=== PATIENT | male | born 1960 | race Caucasian/White ===

== ENCOUNTER 2018-12-22 11:52 | Emergency (ER) | payer BC ==
[2018-12-22] MEDS ORDERED: Ketorolac 60 MG/2 ML SDV IM ONE (12:16)
--- NOTE | 2018-12-22 12:28 | EDM.PDOC ---
ED HPI GENERAL MEDICAL PROBLEM - General Chief Complaint: Genitourinary Problem Stated Complaint: RT SIDE KIDNEY PAIN Time Seen by Provider: 12/22/18 12:10 Source of Information: Reports: Patient, Old Records, RN History Limitations: Reports: No Limitations - History of Present Illness INITIAL COMMENTS - FREE TEXT/NARRATIVE: 58 yo male here with R low flank area pain. This is chronic, but worse since last night. No fever, hematuria, nausea, or dysuria. He has a pHx of both a R renal cyst and kidney stones. Has a referral to urology that he has been putting off. Says he gets relief of this recurring pain just by hydrating himself fully. Denies injury to this area. Movement does not change the pain. Has not taken anything for the pain. Onset: Gradual Onset Date: 12/21/18 Onset Time: 20:15 (Pain worse since last night.) Duration: Hour(s):, Constant Location: Reports: Back (R low, lateral ) Quality: Reports: Ache Severity: Moderate Improves with: Reports: Other (hydration) Worsens with: Reports: Other (touching area, not drinking water ) Context: Reports: Other (see HPI) Associated Symptoms: Reports: No Other Symptoms. 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) - Related Data Allergies Allergy/AdvReac Type Severity Reaction Status Date / Time No Known Allergies Allergy Verified 06/01/18 21:47 Home Meds: Home Meds Diazepam [Valium] 5 mg PO BID 06/01/18 [History] Omeprazole 20 mg PO DAILY 06/01/18 [History] Aspirin 81 mg PO DAILY 12/22/18 [History] Lisinopril 10 mg PO BID 12/22/18 [History] Metoprolol Succinate [Toprol XL] 75 mg PO DAILY 12/22/18 [History] Past Medical History Cardiovascular History: Reports: Afib, Hypertension, Syncope Gastrointestinal History: Reports: GERD Genitourinary History: Reports: Renal Calculus Neurological History: Reports: Other (See Below) Other Neuro History: pseudoseizures since 27yo Psychiatric History: Reports: Anxiety, Depression Endocrine/Metabolic History: Reports: Obesity/BMI 30+ Oncologic (Cancer) History: Reports: Other (See Below) Other Oncologic History: skin cancer (not melanoma) - Infectious Disease History Infectious Disease History: Reports: Chicken Pox - Past Surgical History GI Surgical History: Reports: Colonoscopy Male Surgical History: Reports: Lithotripsy (ESWL), Ureteral Stent Musculoskeletal Surgical History: Reports: Arthroscopic Knee Social & Family History - Tobacco Use Smoking Status *Q: Never Smoker - Caffeine Use Caffeine Use: Reports: None - Recreational Drug Use Recreational Drug Use: No ED ROS GENERAL - Review of Systems Review Of Systems: See Below Constitutional: Reports: No Symptoms HEENT: Reports: No Symptoms Respiratory: Reports: No Symptoms Cardiovascular: Reports: No Symptoms GI/Abdominal: Reports: No Symptoms : Reports: Flank Pain (R low flank area) Musculoskeletal: Reports: Back Pain (R low back) Skin: Reports: No Symptoms Neurological: Reports: No Symptoms ED EXAM, RENAL/ - Physical Exam Exam: See Below Exam Limited By: No Limitations General Appearance: Alert, WD/WN, No Apparent Distress Eye Exam: Bilateral Eye: Normal Inspection Nose: Normal Inspection, No Blood Throat/Mouth: Normal Lips, Normal Oropharynx, Normal Voice Head: Atraumatic, Sinus Tenderness Neck: Normal Inspection Respiratory/Chest: No Respiratory Distress, Lungs Clear, Normal Breath Sounds, No Accessory Muscle Use Cardiovascular: Regular Rate, Rhythm, No Edema GI/Abdominal: Normal Bowel Sounds, Soft, Non-Tender, No Distention Back Exam: Normal Inspection, Other (Tender in a very small area with touching to the R low back area, ? rib). No: CVA Tenderness (R), CVA Tenderness (L) Extremities: Normal Inspection, Normal Range of Motion, Non-Tender, No Pedal Edema Neurological: Alert, Oriented, CN II-XII Intact, Normal Cognition, No Motor/ Sensory Deficits Psychiatric: Normal Affect, Normal Mood Skin Exam: Warm, Dry, Intact, No Rash, Ecchymosis (sacral midline, not the area he reports pain, he does not know how he got this. ) Course - Vital Signs Last Recorded V/S: Last Vital Signs Temp 36.2 C 12/22/18 12:10 Pulse 89 12/22/18 12:10 Resp 16 12/22/18 12:10 BP 140/89 12/22/18 12:10 Pulse Ox 94 L 12/22/18 12:10 - Orders/Labs/Meds Labs: Laboratory Tests 12/22/18 Range/Units 12:20 Urine Color Yellow Urine Appearance Slightly cloudy Urine pH 5.0 (4.5-8.0) Ur Specific [place] 1.010 (1.008-1.030) Urine Protein Negative (NEGATIVE) mg/dL Urine Glucose (UA) Negative (NEGATIVE) mg/dL Urine Ketones 15 H (NEGATIVE) mg/dL Urine Occult Blood Trace (NEGATIVE) Urine Nitrite Negative (NEGAITVE) Urine Bilirubin Negative (NEGATIVE) Urine Urobilinogen Normal (NORMAL) mg/dL Ur Leukocyte Esterase Negative (NEGATIVE) Urine RBC 0-5 (0-5) Urine WBC 0-5 (0-5) Ur Epithelial Cells Not seen Amorphous Sediment Not seen Urine Bacteria Rare Urine Mucus Not seen Urine Other See note Meds: Medications Discontinued Medications Generic Name Dose Route Start Last Admin Trade Name Freq PRN Reason Stop Dose Admin Ketorolac Tromethamine 60 mg 12/22/18 12:16 12/22/18 12:23 Toradol IM 12/22/18 12:17 60 mg ONETIME ONE Administration - Radiology Interpretation Free Text/Narrative:: CT abd/pelvis without contrast-12 mm L UPJ stone. 2.5 cm lesion R kidney. Stones in both kidneys. CT Results Date: 12/22/18 CT Results Time: 13:05 Departure - Departure Time of Disposition: 13:10 Disposition: Home, Self-Care 01 Condition: Fair Clinical Impression: Ureterolithiasis, Renal mass, right - Discharge Information *PRESCRIPTION DRUG MONITORING PROGRAM REVIEWED*: No *COPY OF PRESCRIPTION DRUG MONITORING REPORT IN PATIENT ENRIQUE: No Instructions: Kidney Stones, [id number] Referrals: Matthew Callejas MD [Primary Care Provider] - Forms: ED Department Discharge Additional Instructions: Drink ample fluids. Take ibuprofen as needed for pain relief starting after 6 pm today. Take acetaminophen as needed starting anytime. Follow up with urology EM. Return here as needed.
--- NOTE | 2018-12-22 13:04 | CRLCT ---
INDICATION: Right lower flank pain. History of renal cysts and stones TECHNIQUE: CT abdomen and pelvis without contrast. COMPARISON: None FINDINGS: Lower chest: 2 millimeter right lower lobe nodule. Liver: Unremarkable. Spleen: Unremarkable. Pancreas: Unremarkable. Gallbladder and bile ducts: Unremarkable. Kidneys/urinary bladder: 2.5 centimeter exophytic lesion superior pole right kidney with Hounsfield units of 25. Two 5 millimeter nonobstructing calculi involving the mid zone inferior pole right kidney. 7 millimeter nonobstructing calculi inferior pole left kidney. 12 millimeter calculus left UPJ with mild left hydronephrosis. Diffuse urinary bladder wall thickening. Adrenal glands: Unremarkable. GI tract: Unremarkable. Appendix is normal. Vascular structures: Unremarkable. Lymph nodes: Unremarkable. Miscellaneous: Unremarkable. No free air or significant free fluid. Pelvic Organs: Unremarkable. Bones: Unremarkable for age. IMPRESSION: No definitive findings to explain the patient`s right lower flank pain. Two 5 millimeter nonobstructing calculus involving the mid zone and inferior pole right kidney. 12 millimeter calculus left UPJ with mild left hydronephrosis. 7 millimeter nonobstructing calculus inferior pole left kidney. Diffuse urinary bladder wall thickening. Correlate with cystitis clinically. Normal-sized prostate gland. 2.5 centimeter mixed density exophytic lesion superior pole right kidney without the use of 25. This can be better evaluated with ultrasound on a nonemergent basis. No prior exams for comparison. 2 millimeter right lower lobe nodule. Please note that all CT scans at this facility use dose modulation, iterative reconstruction, and/or weight-based dosing when appropriate to reduce radiation dose to as low as reasonably achievable. Dictated by Jhonatan Min MD @ Dec 22 2018 1:04PM Signed by Dr. Jhonatan Min @ Dec 22 2018 1:04PM
== END 2018-12-22 13:47 | disposition home or self-care (01) ==
LOC: JP.ED 11:52
DX: N13.2 Hydronephrosis with renal and ureteral calculous obstruction (principal); I48.91 Unspecified atrial fibrillation; I10 Essential (primary) hypertension; K21.9 Gastro-esophageal reflux disease without esophagitis; F41.9 Anxiety disorder, unspecified; F32.9 Major depressive disorder, single episode, unspecified; Z79.82 Long term (current) use of aspirin; Z79.899 Other long term (current) drug therapy
CPT/HCPCS: 74176; 81001; 96372; 99284; J1885

== ENCOUNTER 2019-01-02 03:45 | Emergency (ER) | payer BC ==
[2019-01-02] MEDS ORDERED: Lactated Ringers 1,000 ML IV ONE (04:03)
[2019-01-02] MEDS ORDERED: Metoclopramide 10 MG/2 ML SDV IVPUSH ONE (04:03)
[2019-01-02] MEDS ORDERED: Ketorolac 30 MG/ML SDV IVPUSH ONE (04:04)
[2019-01-02] MEDS ORDERED: HYDROmorphone 1 MG/ML Syringe IVPUSH ONE (04:04)
--- NOTE | 2019-01-02 04:15 | EDM.PDOC ---
ED HPI GENERAL MEDICAL PROBLEM - General Chief Complaint: Flank Pain Stated Complaint: KIDNEY STONES RIGHT SIDE Time Seen by Provider: 01/02/19 03:55 Source of Information: Reports: Patient, Family, Old Records, RN History Limitations: Reports: No Limitations - History of Present Illness INITIAL COMMENTS - FREE TEXT/NARRATIVE: 59 yo male with a known 12 mm distal R ureteral stone has seen urology, but is awaiting a procedure to remove it. He was not given pain meds per urology and is not in a lot of pain and has nausea/vomiting. No hematemesis. No fever. Here with his . Onset: Unknown/Unsure Duration: Week(s): (more than a week), Waxing/Waning Location: Reports: Back (right flank) Quality: Reports: Ache Severity: Moderate Improves with: Reports: None Worsens with: Reports: None Context: Reports: Other (See HPI) Associated Symptoms: Reports: Nausea/Vomiting. 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) right flank Pain Score (Numeric/FACES): 9 - Related Data Allergies Allergy/AdvReac Type Severity Reaction Status Date / Time No Known Allergies Allergy Verified 01/02/19 03:55 Home Meds: Home Meds Diazepam [Valium] 5 mg PO BID 06/01/18 [History] Omeprazole 20 mg PO DAILY 06/01/18 [History] Aspirin 81 mg PO DAILY 12/22/18 [History] Lisinopril 10 mg PO BID 12/22/18 [History] Metoprolol Succinate [Toprol XL] 75 mg PO DAILY 12/22/18 [History] Acetaminophen/oxyCODONE [Percocet 325-5 MG] 1 - 2 tab PO Q4H PRN #14 tab [Rx] Ondansetron [Zofran ODT] 4 mg PO Q6H PRN #10 tab.dis 01/02/19 [Rx] Past Medical History Cardiovascular History: Reports: Afib, Hypertension, Syncope Gastrointestinal History: Reports: GERD Genitourinary History: Reports: Renal Calculus Neurological History: Reports: Other (See Below) Other Neuro History: pseudoseizures since 27yo Psychiatric History: Reports: Anxiety, Depression Endocrine/Metabolic History: Reports: Obesity/BMI 30+ Oncologic (Cancer) History: Reports: Other (See Below) Other Oncologic History: skin cancer (not melanoma) - Infectious Disease History Infectious Disease History: Reports: Chicken Pox - Past Surgical History GI Surgical History: Reports: Colonoscopy Male Surgical History: Reports: Lithotripsy (ESWL), Ureteral Stent Musculoskeletal Surgical History: Reports: Arthroscopic Knee Social & Family History - Tobacco Use Smoking Status *Q: Never Smoker - Caffeine Use Caffeine Use: Reports: None - Recreational Drug Use Recreational Drug Use: No ED ROS GENERAL - Review of Systems Review Of Systems: See Below Constitutional: Reports: No Symptoms HEENT: Reports: No Symptoms Respiratory: Reports: No Symptoms Cardiovascular: Reports: No Symptoms Endocrine: Reports: No Symptoms GI/Abdominal: Reports: Nausea, Vomiting : Reports: Flank Pain (right). Denies: Dysuria, Hematuria, Incontinence, Urgency, Urinary Retention Musculoskeletal: Reports: No Symptoms Skin: Reports: No Symptoms Neurological: Reports: No Symptoms ED EXAM,LOWER BACK PAIN/INJURY - Physical Exam Exam: See Below Exam Limited By: No Limitations General Appearance: Alert, WD/WN, No Apparent Distress Eye Exam: Bilateral Eye: Normal Inspection Ears: Normal External Exam, Normal Canal, Hearing Grossly Normal, Normal TMs Nose: Normal Inspection, Normal Mucosa, No Blood Throat/Mouth: Normal Inspection, Normal Lips, Normal Voice, No Airway Compromise Head: Atraumatic, Normocephalic Neck: Normal Inspection Respiratory/Chest: No Respiratory Distress, Lungs Clear, No Accessory Muscle Use Cardiovascular: Regular Rate, Rhythm, No Edema Back Exam: Normal Inspection. No: CVA Tenderness (R), CVA Tenderness (L) Extremities: Normal Inspection, Normal Range of Motion, Non-Tender, No Pedal Edema Neurological: Alert, Normal Mood/Affect, CN II-XII Intact, No Motor/Sensory Deficits, Oriented x 3 Psychiatric: Normal Affect, Normal Mood Skin Exam: Warm, Dry, Intact, Normal Color, No Rash Course - Vital Signs Last Recorded V/S: Last Vital Signs Temp 35.6 C 01/02/19 03:58 Pulse 61 01/02/19 03:58 Resp 16 01/02/19 03:58 BP 171/93 H 01/02/19 03:58 Pulse Ox 99 01/02/19 03:58 - Orders/Labs/Meds Orders: Active Orders 24 hr Category Date Time Status UA W/MICROSCOPIC [URIN] Stat Lab 01/02/19 03:56 Ordered Meds: Medications Discontinued Medications Generic Name Dose Route Start Last Admin Trade Name Freq PRN Reason Stop Dose Admin Hydromorphone HCl 1 mg 01/02/19 04:04 01/02/19 04:20 Dilaudid IVPUSH 01/02/19 04:05 1 mg ONETIME ONE Administration Lactated Ringer's 1,000 mls @ 1,000 mls/hr 01/02/19 04:03 01/02/19 04:20 Ringers, Lactated IV 01/02/19 05:02 1,000 mls/hr BOLUS ONE Administration Ketorolac Tromethamine 30 mg 01/02/19 04:04 01/02/19 04:17 Toradol IVPUSH 01/02/19 04:05 30 mg ONETIME ONE Administration Metoclopramide HCl 10 mg 01/02/19 04:03 01/02/19 04:19 Reglan IVPUSH 01/02/19 04:04 10 mg ONETIME ONE Administration Departure - Departure Time of Disposition: 05:29 Disposition: Home, Self-Care 01 Condition: Fair Clinical Impression: Renal colic on right side - Discharge Information *PRESCRIPTION DRUG MONITORING PROGRAM REVIEWED*: No *COPY OF PRESCRIPTION DRUG MONITORING REPORT IN PATIENT ENRIQUE: No Prescriptions: Acetaminophen/oxyCODONE [Percocet 325-5 MG] 1 - 2 tab PO Q4H PRN #14 tab PRN Reason: Pain Ondansetron [Zofran ODT] 4 mg PO Q6H PRN #10 tab.dis PRN Reason: Nausea Instructions: Renal Colic Referrals: PCP,None [Primary Care Provider] - Forms: ED Department Discharge Additional Instructions: Take Zofran as needed for nausea control. Take ibuprofen 400 mg every 6 hrs for pain relief. Add acetaminophen OR Percocet as needed for added relief. Recheck for a fever. See a urologist to get your stone out EM. - My Orders Last 24 Hours: My Active Orders 01/02/19 03:56 UA W/MICROSCOPIC [URIN] Stat - Assessment/Plan Last 24 Hours: My Active Orders 01/02/19 03:56 UA W/MICROSCOPIC [URIN] Stat
== END 2019-01-02 06:06 | disposition home or self-care (01) ==
LOC: JP.ED 03:45
DX: N23 Unspecified renal colic (principal); I10 Essential (primary) hypertension; I48.91 Unspecified atrial fibrillation; K21.9 Gastro-esophageal reflux disease without esophagitis; F41.9 Anxiety disorder, unspecified; F32.9 Major depressive disorder, single episode, unspecified; Z79.82 Long term (current) use of aspirin; Z79.899 Other long term (current) drug therapy
CPT/HCPCS: 81001; 96361; 96374; 96375; 99284; J1170; J1885; J2765; J7120

== ENCOUNTER 2019-01-16 08:42 | Emergency (ER) | payer BC ==
[2019-01-16] MEDS ORDERED: Ketorolac 60 MG/2 ML SDV IM ONE (09:27)
--- NOTE | 2019-01-16 09:46 | EDM.PDOC ---
ED HPI GENERAL MEDICAL PROBLEM - General Chief Complaint: Genitourinary Problem Stated Complaint: KIDNEY STONES? Time Seen by Provider: 01/16/19 09:30 Source of Information: Reports: Patient, Family History Limitations: Reports: No Limitations - History of Present Illness INITIAL COMMENTS - FREE TEXT/NARRATIVE: 59-year-old male with ongoing right flank pain presumably from renal colic and nephrolithiasis, he has another CT scan scheduled for 2 days and a urology consult with surgery for a small tumor on the right kidney. A CT scan done 2 weeks ago showed several nonobstructing kidney stones bilaterally. Every day he has some pain, but this morning it was much worse, he feels anxious and shaky and wanted to be checked. Onset: Unknown/Unsure (Symptoms have been ongoing for weeks but have worsened over the past 12 hours) Associated Symptoms: Denies: Confusion, Chest Pain, Cough, Nausea/Vomiting, Shortness of Breath Right Flank Pain Score (Numeric/FACES): 9 - Related Data Allergies Allergy/AdvReac Type Severity Reaction Status Date / Time No Known Allergies Allergy Verified 01/02/19 03:55 Home Meds: Home Meds Diazepam [Valium] 5 mg PO BID 06/01/18 [History] Omeprazole 20 mg PO DAILY 06/01/18 [History] Aspirin 81 mg PO DAILY 12/22/18 [History] Lisinopril 10 mg PO BID 12/22/18 [History] Metoprolol Succinate [Toprol XL] 75 mg PO DAILY 12/22/18 [History] Acetaminophen/oxyCODONE [Percocet 325-5 MG] 1 - 2 tab PO Q4H PRN #14 tab [Rx] Ondansetron [Zofran ODT] 4 mg PO Q6H PRN #10 tab.dis 01/02/19 [Rx] Past Medical History Cardiovascular History: Reports: Afib, Hypertension, Syncope Gastrointestinal History: Reports: GERD Genitourinary History: Reports: Renal Calculus Neurological History: Reports: Other (See Below) Other Neuro History: pseudoseizures since 27yo Psychiatric History: Reports: Anxiety, Depression Endocrine/Metabolic History: Reports: Obesity/BMI 30+ Oncologic (Cancer) History: Reports: Other (See Below) Other Oncologic History: skin cancer (not melanoma) - Infectious Disease History Infectious Disease History: Reports: Chicken Pox - Past Surgical History GI Surgical History: Reports: Colonoscopy Male Surgical History: Reports: Lithotripsy (ESWL), Ureteral Stent Musculoskeletal Surgical History: Reports: Arthroscopic Knee Social & Family History - Tobacco Use Smoking Status *Q: Never Smoker - Caffeine Use Caffeine Use: Reports: None - Recreational Drug Use Recreational Drug Use: No ED ROS GENERAL - Review of Systems Review Of Systems: See Below Constitutional: Denies: Fever, Chills Respiratory: Denies: Shortness of Breath Cardiovascular: Denies: Chest Pain GI/Abdominal: Reports: Abdominal Pain (Right lower abdominal discomfort intermittent and sharp) : Reports: Flank Pain. Denies: Dysuria Musculoskeletal: Denies: Neck Pain Skin: Reports: No Symptoms ED EXAM, GENERAL - Physical Exam Exam: See Below Exam Limited By: No Limitations General Appearance: Alert, Anxious, Mild Distress Respiratory/Chest: No Respiratory Distress, Lungs Clear Cardiovascular: Regular Rate, Rhythm GI/Abdominal: Other (Tender to palpation along the right abdomen, even with mild palpation) Back Exam: Other (Back exam is difficult to examine because and even light palpation on the right flank or right lateral chest causes the patient to wince and discomfort) Psychiatric: Anxious (Patient is extremely anxious) Skin Exam: Warm, Dry Course - Vital Signs Last Recorded V/S: Last Vital Signs Temp 97.6 F 01/16/19 09:13 Pulse 83 01/16/19 09:13 Resp 18 01/16/19 09:13 BP 149/80 H 01/16/19 09:13 Pulse Ox 100 01/16/19 09:13 - Orders/Labs/Meds Labs: Laboratory Tests 01/16/19 Range/Units 09:21 Urine Color Yellow Urine Appearance Slightly cloudy Urine pH 5.0 (4.5-8.0) Ur Specific [place] 1.010 (1.008-1.030) Urine Protein Trace (NEGATIVE) mg/dL Urine Glucose (UA) 50 H (NEGATIVE) mg/dL Urine Ketones 15 H (NEGATIVE) mg/dL Urine Occult Blood Moderate (NEGATIVE) Urine Nitrite Negative (NEGAITVE) Urine Bilirubin Negative (NEGATIVE) Urine Urobilinogen Normal (NORMAL) mg/dL Ur Leukocyte Esterase Moderate (NEGATIVE) Urine RBC 5-10 H (0-5) Urine WBC 0-5 (0-5) Ur Epithelial Cells Few Amorphous Sediment Not seen Urine Bacteria Not seen Urine Mucus Few Meds: Medications Discontinued Medications Generic Name Dose Route Start Last Admin Trade Name Romina PRN Reason Stop Dose Admin Ketorolac Tromethamine 60 mg 01/16/19 09:27 01/16/19 09:31 Toradol IM 01/16/19 09:28 60 mg ONETIME ONE Administration - Re-Assessments/Exams Free Text/Narrative Re-Assessment/Exam: 01/16/19 12:11 UA was obtained that showed 5-10 RBCs, no other findings. CT showed a stable right renal mass, no hydronephrosis or other abnormality abdomen or pelvis. This was explained to the patient and I encouraged him to use the oxycodone that he was given last week for pain. I also given 10 doses of Ativan to use for anxiety and help him sleep until he can get this taken care of. I encouraged him to contact [facility] directly or consider going to the emergency room if he does not feel he can wait till 01 February for surgery. Departure - Departure Time of Disposition: 11:41 Disposition: Home, Self-Care 01 Clinical Impression: Right flank pain - Discharge Information Instructions: Flank Pain, Adult Referrals: Matthew Callejas MD [Primary Care Provider] - Forms: ED Department Discharge Care Plan Goals: Use oxycodone as prescribed for pain, and add Ativan for restlessness and to help you sleep. Consider calling [facility] to move up her surgery or reevaluate sooner at [facility] or emergency room.
--- NOTE | 2019-01-16 10:57 | CRLCT ---
HISTORY: Flank pain. TECHNIQUE: Noncontrast CT abdomen and pelvis. COMPARISON: 12/22/2018. FINDINGS: There is no focal liver parenchymal abnormality. Probable tiny gallstones. Gallbladder does not appear overly distended. The spleen and right adrenal gland are normal. Mild lobularity of the left adrenal gland is unchanged. There is no focal pancreatic abnormality. - Intrarenal calculi are present bilaterally. There is also an approximately 10 mm calculus at or slightly below the left ureteropelvic junction which appears unchanged from prior CT. No significant dilatation of the left renal collecting system. One of the intrarenal calculi on the left has changed position from the prior CT. There is no right-sided hydronephrosis or right ureteral calculus. Urinary bladder is contracted. Fluid density lesion exophytic off the superior pole right kidney is incompletely characterized but may represent a cyst. There is mild perinephric stranding or fluid bilaterally. - No small bowel obstruction. No appendicitis. No diverticulitis. No fluid collection or free air. No abdominal aortic aneurysm. - Degenerative changes of the spine. No change in mild anterior wedging of several lower thoracic vertebral bodies and L1. Bridging osteophytes across sacroiliac joints. Degenerative changes of the hips. - No consolidation within the lung bases nor pleural effusion. There are few micro nodules within the lung bases which are unchanged. IMPRESSION: 1. 10 mm calculus either at or just below the left ureteropelvic junction as before. No significant dilatation of the left renal collecting system. 2. Additional intrarenal calculi bilaterally. 3. Suspected tiny stones within the gallbladder. Gallbladder does not appear overly distended. 4. No bowel obstruction, appendicitis or diverticulitis. Dictated by Elliot Ramachandran MD @ 01/16/2019 10:55:08 AM Please note that all CT scans at this facility use dose modulation, iterative reconstruction, and/or weight-based dosing when appropriate to reduce radiation dose to as low as reasonably achievable. Dictated by: Elliot Ramachandran MD @ 01/16/2019 10:55:16 (Electronically Signed)
== END 2019-01-16 11:41 | disposition home or self-care (01) ==
LOC: JP.ED 08:42
DX: R10.9 Unspecified abdominal pain (principal); I48.91 Unspecified atrial fibrillation; I10 Essential (primary) hypertension; K21.9 Gastro-esophageal reflux disease without esophagitis; F41.9 Anxiety disorder, unspecified; F32.9 Major depressive disorder, single episode, unspecified; Z79.82 Long term (current) use of aspirin; Z79.899 Other long term (current) drug therapy
CPT/HCPCS: 74176; 81001; 96372; 99284; J1885

== ENCOUNTER 2019-01-24 02:29 | Emergency (ER) | payer BC ==
--- NOTE | 2019-01-24 03:11 | EDM.PDOC ---
ED HPI GENERAL MEDICAL PROBLEM - General Chief Complaint: Neuro Symptoms/Deficits Stated Complaint: MEDICAL VIA NORTH Time Seen by Provider: 01/24/19 03:05 Source of Information: Reports: Patient History Limitations: Reports: No Limitations - History of Present Illness INITIAL COMMENTS - FREE TEXT/NARRATIVE: pt has a long history of episodes of shakeing. In the past he was on Valium and he stopped taking that about 1 month ago. He has had 3 episodes of severe shaking and confusion since that time. He was sent to [place] in May with a elevated trop and was found to be dehydrated. He was also found to have a renal mass at that time. He was placed on effexor while in [place] and he did not do well on this medication. He has had these episodes of shaking since he was about 27 years old. Onset: Today, Sudden Duration: Hour(s):, Other (Pt did have shaking for about 2 hours. His found him very confused. ) Location: Reports: Head Associated Symptoms: Reports: Confusion, Other (pt is clearing at this point. ) - Related Data Allergies Allergy/AdvReac Type Severity Reaction Status Date / Time No Known Allergies Allergy Verified 01/24/19 02:34 Home Meds: Home Meds Diazepam [Valium] 5 mg PO BID 06/01/18 [History] Omeprazole 20 mg PO DAILY 06/01/18 [History] Aspirin 81 mg PO DAILY 12/22/18 [History] Lisinopril 10 mg PO BID 12/22/18 [History] Metoprolol Succinate [Toprol XL] 75 mg PO DAILY 12/22/18 [History] Acetaminophen/oxyCODONE [Percocet 325-5 MG] 1 - 2 tab PO Q4H PRN #14 tab [Rx] Past Medical History Cardiovascular History: Reports: Afib, Hypertension, Syncope Gastrointestinal History: Reports: GERD Genitourinary History: Reports: Renal Calculus Neurological History: Reports: Other (See Below) Other Neuro History: pseudoseizures since 27yo Psychiatric History: Reports: Anxiety, Depression Endocrine/Metabolic History: Reports: Obesity/BMI 30+ Oncologic (Cancer) History: Reports: Other (See Below) Other Oncologic History: skin cancer (not melanoma) - Infectious Disease History Infectious Disease History: Reports: Chicken Pox - Past Surgical History GI Surgical History: Reports: Colonoscopy Male Surgical History: Reports: Lithotripsy (ESWL), Ureteral Stent Musculoskeletal Surgical History: Reports: Arthroscopic Knee Social & Family History - Tobacco Use Smoking Status *Q: Never Smoker - Caffeine Use Caffeine Use: Reports: None ED ROS GENERAL - Review of Systems Review Of Systems: See Below Constitutional: Reports: No Symptoms HEENT: Reports: No Symptoms Respiratory: Reports: No Symptoms Cardiovascular: Reports: No Symptoms Endocrine: Reports: No Symptoms GI/Abdominal: Reports: No Symptoms : Reports: No Symptoms Neurological: Reports: Confusion, Other ( shaking episodes. ) Psychiatric: Reports: Confusion ED EXAM, NEURO - Physical Exam Exam: See Below Text/Narrative:: pt is alert and is remembering things at this time. He remembers coming in by ambulance. He knows where he is. Exam Limited By: Other (pt is clearing at this point.) General Appearance: No Apparent Distress, Anxious, Other (pupils are equal and reactive. ) Ears: Normal TMs Nose: Normal Inspection Throat/Mouth: Normal Inspection Head Exam: Atraumatic Neck: Normal Inspection Respiratory/Chest: No Respiratory Distress Cardiovascular: Regular Rate, Rhythm, Other (pt has a history of atrial fib. ) GI/Abdominal: Normal Bowel Sounds (Male) Exam: Deferred Rectal (Males) Exam: Deferred Neurological: Alert Back Exam: Normal Inspection Extremities: Normal Inspection Psychiatric: Anxious Course - Vital Signs Last Recorded V/S: Last Vital Signs Temp 36.3 C 01/24/19 02:32 Pulse 76 01/24/19 02:32 Resp 20 01/24/19 02:32 BP Pulse Ox 95 01/24/19 02:32 - Orders/Labs/Meds Orders: Active Orders 24 hr Category Date Time Status Head wo Cont [CT] Stat Exams 01/24/19 03:04 Ordered COMPREHENSIVE METABOLIC PN,CMP [CHEM] Urgent Lab 01/24/19 02:54 Received UA W/MICROSCOPIC [URIN] Urgent Lab 01/24/19 02:45 Ordered Labs: Laboratory Tests 01/24/19 Range/Units 02:54 WBC 4.8 (4.5-11.0) K/uL RBC 4.16 L (4.30-5.90) M/uL Hgb 12.5 D (12.0-15.0) g/dL Hct 36.1 L (40.0-54.0) % MCV 87 (80-98) fL MCH 30 (27-31) pg MCHC 35 (32-36) % Plt Count 165 (150-400) K/uL Neut % (Auto) 71 H (36-66) % Lymph % (Auto) 19 L (24-44) % Cameron % (Auto) 9 H (2-6) % Eos % (Auto) 1 L (2-4) % Baso % (Auto) 0 (0-1) % - Re-Assessments/Exams Free Text/Narrative Re-Assessment/Exam: 01/24/19 03:37 pt has chronically had a elevated creatnine. His gfr remains in the 40s. He has a hg of 12.5. He is clearing nicely at this point. 01/24/19 04:07 pt had a cat scan of the head was normal. He will be having kidney surgery in January for a mass and for kidney stones. 01/24/19 04:09 Departure - Departure Time of Disposition: 04:03 Disposition: Home, Self-Care 01 Condition: Fair Clinical Impression: Pseudoseizure, Renal calculi, Renal insufficiency - Discharge Information Referrals: Matthew Callejas MD [Primary Care Provider] - Forms: ED Department Discharge Care Plan Goals: push fluids, resume valium 5 mg bid, rtc if increased problems - My Orders Last 24 Hours: My Active Orders 01/24/19 02:45 UA W/MICROSCOPIC [URIN] Urgent 01/24/19 02:54 COMPREHENSIVE METABOLIC PN,CMP [CHEM] Urgent 01/24/19 03:04 Head wo Cont [CT] Stat - Assessment/Plan Last 24 Hours: My Active Orders 01/24/19 02:45 UA W/MICROSCOPIC [URIN] Urgent 01/24/19 02:54 COMPREHENSIVE METABOLIC PN,CMP [CHEM] Urgent 01/24/19 03:04 Head wo Cont [CT] Stat
--- NOTE | 2019-01-24 04:07 | CRLCT ---
INDICATION: Shaking episode and confusion. TECHNIQUE: CT head without contrast. COMPARISON: None. FINDINGS: CSF spaces: Within normal limits for age. Brain parenchyma: The huddleston-white differentiation is normal. No sign of mass, hemorrhage, or midline shift. Skull base and calvarium: The visualized paranasal sinuses and mastoid air cells demonstrate no acute or significant findings. The visualized orbits are grossly unremarkable. No skull fractures. Atherosclerosis. IMPRESSION: Unremarkable noncontrast head CT. Please note that all CT scans at this facility use dose modulation, iterative reconstruction, and/or weight-based dosing when appropriate to reduce radiation dose to as low as reasonably achievable. Dictated by Johnnie Tapia MD @ Jan 24 2019 3:59AM Signed by Dr. Johnnie Tapia @ Jan 24 2019 4:05AM
== END 2019-01-24 04:24 | disposition home or self-care (01) ==
LOC: JP.ED 02:29
DX: R56.9 Unspecified convulsions (principal); N28.9 Disorder of kidney and ureter, unspecified; N20.0 Calculus of kidney; K21.9 Gastro-esophageal reflux disease without esophagitis; I48.91 Unspecified atrial fibrillation; I10 Essential (primary) hypertension; F41.9 Anxiety disorder, unspecified; F32.9 Major depressive disorder, single episode, unspecified; Z79.82 Long term (current) use of aspirin; Z79.899 Other long term (current) drug therapy
CPT/HCPCS: 36415; 70450; 80053; 81001; 85025; 86140; 99285-25

== ENCOUNTER 2019-05-09 15:10 | Emergency (ER) | payer BC ==
[2019-05-09] MEDS ORDERED: Bacitracin Oint 1 GM U/D Packet TOP ONE (15:56)
[2019-05-09] MEDS ORDERED: Lidocaine 1% with EPINEPHrine 1:100,000 50 ML MDV SUBCUT STA (15:56)
[2019-05-09] MEDS ORDERED: Diphtheria,Pertussis(Acell),Tetanus Vaccine 0.5 ML SDV IM ONE (15:56)
--- NOTE | 2019-05-09 16:02 | EDM.PDOC ---
ED HPI GENERAL MEDICAL PROBLEM - General Chief Complaint: Upper Extremity Injury/Pain Stated Complaint: MEDICAL VIA NORTH Time Seen by Provider: 05/09/19 15:52 Source of Information: Reports: Patient, Family, RN Notes Reviewed History Limitations: Reports: No Limitations - History of Present Illness INITIAL COMMENTS - FREE TEXT/NARRATIVE: 59-year-old gentleman presents emergency department today following a fall off a ladder at home. He estimates he was up 8 or 9 feet in the air lost his footing fell backwards ended up hitting the back of his head on a rock and landed on his right shoulder where he is experiencing pain difficult to move he had no loss of consciousness no change in vision no nausea or vomiting. Describes no other pain Head Pain Score (Numeric/FACES): 5 Right Shoulder Pain Score (Numeric/FACES): 5 - Related Data Allergies Allergy/AdvReac Type Severity Reaction Status Date / Time No Known Allergies Allergy Verified 05/09/19 15:12 Home Meds: Home Meds Diazepam [Valium] 5 mg PO BID 06/01/18 [History] Aspirin 81 mg PO DAILY 12/22/18 [History] Lisinopril 10 mg PO BID 12/22/18 [History] Metoprolol Succinate [Toprol XL] 75 mg PO DAILY 12/22/18 [History] Past Medical History HEENT History: Reports: Impaired Vision Cardiovascular History: Reports: Afib, Hypertension, Syncope Gastrointestinal History: Reports: GERD Genitourinary History: Reports: Renal Calculus Musculoskeletal History: Reports: Arthritis Neurological History: Reports: Concussion, Other (See Below) Other Neuro History: pseudoseizures since 27yo Psychiatric History: Reports: Anxiety, Depression Endocrine/Metabolic History: Reports: Obesity/BMI 30+ Oncologic (Cancer) History: Reports: Other (See Below) Other Oncologic History: skin cancer (not melanoma) - Infectious Disease History Infectious Disease History: Reports: Chicken Pox - Past Surgical History Head Surgeries/Procedures: Reports: None HEENT Surgical History: Reports: None Cardiovascular Surgical History: Reports: None GI Surgical History: Reports: Colonoscopy Male Surgical History: Reports: Lithotripsy (ESWL), Ureteral Stent Endocrine Surgical History: Reports: None Neurological Surgical History: Reports: None Musculoskeletal Surgical History: Reports: Arthroscopic Knee Oncologic Surgical History: Reports: None Dermatological Surgical History: Reports: None Social & Family History - Tobacco Use Smoking Status *Q: Never Smoker Second Hand Smoke Exposure: No - Caffeine Use Caffeine Use: Reports: None - Recreational Drug Use Recreational Drug Use: No Review of Systems - Review of Systems Review Of Systems: See Below Constitutional: Reports: No Symptoms Eyes: Reports: No Symptoms Ears: Reports: No Symptoms Nose: Reports: No Symptoms Mouth/Throat: Reports: No Symptoms Respiratory: Reports: No Symptoms Cardiovascular: Reports: No Symptoms GI/Abdominal: Reports: No Symptoms Genitourinary: Reports: No Symptoms Musculoskeletal: Reports: Shoulder Pain, Joint Pain (Elbow pain) Skin: Reports: Wound Neurological: Reports: Headache ED EXAM, GENERAL - Physical Exam Exam: See Below Free Text/Narrative:: Primary survey GCS of 15 airway is open patent and clear lungs are clear to auscultation bilaterally and cardiovascular demonstrates regular rate and rhythm S1-S2. Secondary survey General: Male, not in any distress, GCS 15, alert and oriented x3 HEENT: head is large hematoma and laceration appreciated back to scalp normocephalic, eyes pupils equal round reactive to light, sclera clear no conjunctivitis appreciated extraocular eye movements intact. Ears tympanic membranes clear and huddleston landmarks and light reflex are present bilaterally canals are clear. Nose no septal deviation, nares are clear, no blood present. Mouth mucosa is moist and pink no erythema or exudate noted in soft palate, tongue is midline uvula is midline, dentition is intact. Neck: Positive for posterior midline C-spine tenderness C collar in place NO evidence of intoxication GCS > 14 No focal neurological deficit Positive for distracting injury Nodes: Deferred Lungs: clear to auscultation bilaterally with symmetrical respirations, no adventitious noise appreciated. CV: Regular rate and rhythm S1 and S2 appreciated no murmurs rubs or gallops noted. Abdomen: Soft, nontender, no palpable masses or organomegaly appreciated, no distention no guarding bowel sounds are present, Extremities: Tenderness over the right shoulder and right elbow left shoulder left elbow no tenderness no tenderness of the wrist pelvic rock's is negative no tenderness at the knees no tenderness at the ankles bilaterally ED TRAUMA EXTREMITY PROCEDURES - Laceration/Wound Repair Right Elbow Lac/Wound Length In cm: 0.5 Appearance: Subcutaneous, Irregular Anesthetic Type: Local Local Anesthesia - Lidocaine (Xylocaine): 1% with EPI Local Anesthetic Volume: 1cc Skin Prep: Saline Saline Irrigation (cc's): 20 Exploration/Debridement/Repair: Wound Explored, In a Bloodless Field, Explored to Base, Foreign Material Removed Suture Size: 4-0 # of Sutures: 1 Suture Type: Nylon, Interrupted Sterile Dressing Applied: Nurse Tetanus Status Addressed: Yes Complications: No Head Lac/Wound Length In cm: 5 Appearance: Subcutaneous, Irregular Distal NVT: Neuro & Vascular Intact, No Tendon Injury Anesthetic Type: Local Local Anesthesia - Lidocaine (Xylocaine): 1% with EPI Local Anesthetic Volume: 3cc Skin Prep: Saline Saline Irrigation (cc's): 120 Exploration/Debridement/Repair: Wound Explored, In a Bloodless Field, Explored to Base Suture Size: 3-0 # of Sutures: 8 Suture Type: Nylon, Interrupted Tetanus Status Addressed: Yes Complications: No Course - Vital Signs Last Recorded V/S: Last Vital Signs Temp 95.9 F 05/09/19 15:15 Pulse 58 L 05/09/19 15:15 Resp 16 05/09/19 15:15 BP 157/79 H 05/09/19 15:15 Pulse Ox 94 L 05/09/19 15:15 - Orders/Labs/Meds Orders: Active Orders 24 hr Category Date Time Status Vaccines to be Administered [RC] PER UNIT ROUTINE Care 05/09/19 15:57 Active Meds: Medications Discontinued Medications Generic Name Dose Route Start Last Admin Trade Name Romina PRN Reason Stop Dose Admin Bacitracin 3 dose 05/09/19 15:56 Bacitracin Oint 1 Gm TOP 05/09/19 15:57 ONETIME ONE Diphtheria/Tetanus/Acell Pertussis 0.5 ml 05/09/19 15:56 Adacel IM 05/09/19 15:57 .ONCE ONE Lidocaine/Epinephrine 20 ml 05/09/19 15:56 Xylocaine 1% With Epinephrine 1:100,000 SUBCUT 05/09/19 15:57 NOW STA Departure - Departure Time of Disposition: 17:25 Disposition: Home, Self-Care 01 Condition: Fair Clinical Impression: Shoulder sprain Qualifiers: Encounter type: initial encounter Shoulder sprain type: unspecified sprain Laterality: right Qualified Code(s): S43.401A - Unspecified sprain of right shoulder joint, initial encounter Scalp laceration Qualifiers: Encounter type: initial encounter Qualified Code(s): S01.01XA - Laceration without foreign body of scalp, initial encounter Laceration of right elbow Qualifiers: Encounter type: initial encounter Qualified Code(s): S51.011A - Laceration without foreign body of right elbow, initial encounter Head injury due to trauma Qualifiers: Encounter type: initial encounter Qualified Code(s): S09.90XA - Unspecified injury of head, initial encounter - Discharge Information Instructions: Laceration Care, Adult Referrals: PCP,None [Primary Care Provider] - Forms: ED Department Discharge Additional Instructions: Ten-day for suture removal, follow wound care instruction sheet, your tetanus was updated today, please follow-up with primary care in 3-4 days for shoulder reevaluation, suture removal in 10 days return to emergency department or see primary care for suture removal - My Orders Last 24 Hours: My Active Orders 05/09/19 15:57 Vaccines to be Administered [RC] PER UNIT ROUTINE - Assessment/Plan Last 24 Hours: My Active Orders 05/09/19 15:57 Vaccines to be Administered [RC] PER UNIT ROUTINE Plan: Assessment Acuity = acute Site and laterality = laceration half centimeter right elbow, 5 cm laceration to scalp, head trauma, right shoulder sprain concern for rotator cuff injury Etiology = secondary to fall from a ladder Manifestations = none Location of injury = Home Lab values = x-ray of elbow shoulder show no fracture CT scan of the head and neck show no fracture Plan Suture removal in 10 days, follow-up with primary care return to the emergency department, Tylenol or Motrin as needed for pain control recommend follow-up with primary care in 3-4 days for reevaluation of the shoulder This note was dictated using [employer] voice recognition software please call with any questions on syntax or grammar.
--- NOTE | 2019-05-09 16:33 | CRLCT ---
INDICATION: Trauma TECHNIQUE: CT head without contrast. COMPARISON: None available FINDINGS: The ventricles and sulci are within normal limits for the patient`s age. There is no mass effect or midline shift. There is no loss of huddleston-white differentiation. There is no evidence of an acute intracranial hemorrhage. No acute calvarial fracture is seen. There is a superior posterior left parietal scalp hematoma and laceration. There is an air-fluid level in the right maxillary sinus. The mastoid air cells are clear. The visualized orbits are within normal limits. IMPRESSION: No evidence of an acute intracranial hemorrhage, mass effect or loss of huddleston-white differentiation. A posterior left scalp hematoma and laceration. A right maxillary sinus air-fluid level which could be inflammatory, however if there is concern for facial bone injury, correlate with facial bone imaging. Dictated by Kenn Stewart MD @ 05/09/2019 4:30:36 PM Please note that all CT scans at this facility use dose modulation, iterative reconstruction, and/or weight-based dosing when appropriate to reduce radiation dose to as low as reasonably achievable. Dictated by: Kenn Stewart MD @ 05/09/2019 16:30:48 (Electronically Signed)
--- NOTE | 2019-05-09 16:37 | CRLCR ---
Indication: Trauma. Fall. Technique: Four views of the right shoulder were obtained. Comparison: None Findings: The humeral head is seated within the glenoid. Degenerative changes are identified at the acromioclavicular and glenohumeral joint spaces. No acute fracture or subluxation is identified. Impression: Degenerative change. Dictated by Angelica Serrano MD @ May 09 2019 4:34PM Signed by Dr. Angelica Serrano @ May 09 2019 4:35PM
--- NOTE | 2019-05-09 16:37 | CRLCR ---
Indication: Trauma. Fall from a ladder. Technique: Three views of the right elbow were obtained. Comparison: None Findings: No acute fracture or subluxation is identified. Mild degenerative changes are seen. A significant joint effusion is not appreciated. Impression: Degenerative change. Dictated by Angelica Serrano MD @ May 09 2019 4:35PM Signed by Dr. Angelica Serrano @ May 09 2019 4:35PM
--- NOTE | 2019-05-09 16:39 | CRLCT ---
INDICATION: Trauma TECHNIQUE: CT cervical spine without contrast. COMPARISON: None available FINDINGS: There is straightening of the cervical lordosis. The craniocervical and atlantoaxial alignments are near anatomical. There is a fragmented anterior C2 osteophyte which appears corticated. Otherwise, there is no evidence of an acute cervical spine fracture. There is no significant precervical soft tissue swelling. Multilevel degenerative changes are seen. The thyroid is inhomogeneous, containing an irregular calcification in the right lobe, which can be further evaluated with nonemergent sonography. IMPRESSION: No evidence of an acute cervical spine fracture. A fragmented C2 anterior osteophyte appears corticated. Dictated by Kenn Stewart MD @ 05/09/2019 4:37:47 PM Please note that all CT scans at this facility use dose modulation, iterative reconstruction, and/or weight-based dosing when appropriate to reduce radiation dose to as low as reasonably achievable. Dictated by: Kenn Stewart MD @ 05/09/2019 16:38:20 (Electronically Signed)
== END 2019-05-09 17:45 | disposition home or self-care (01) ==
LOC: JP.ED 15:10
DX: S01.01XA Laceration without foreign body of scalp, initial encounter (principal); S51.011A Laceration without foreign body of right elbow, initial encounter; S43.401A Unspecified sprain of right shoulder joint, initial encounter; I10 Essential (primary) hypertension; F41.9 Anxiety disorder, unspecified; F32.9 Major depressive disorder, single episode, unspecified; Z79.82 Long term (current) use of aspirin; Z79.899 Other long term (current) drug therapy; Z23 Encounter for immunization; W11.XXXA Fall on and from ladder, initial encounter; W22.8XXA Striking against or struck by other objects, initial encounter; Y92.009 Unspecified place in unspecified non-institutional (private) residence as the place of occurrence of the external cause
CPT/HCPCS: 12002; 70450; 72125; 73030-RT; 73080-RT; 90471; 90715; 99284-25

== ENCOUNTER 2022-12-24 06:34 | Emergency (ER) | payer BC ==
[2022-12-24] MEDS ORDERED: Sodium Chloride 0.9% 1,000 ML IV ONE (06:35)
[2022-12-24] MEDS ORDERED: Sodium Chloride 0.9% 10 ML Syringe FLUSH PRN ×2 (06:35→06:39)
[2022-12-24 07:22] LABS: ESTIMATED GFR 37 mL/min (>60)
== END 2022-12-24 08:17 | disposition home or self-care (01) ==
LOC: JP.ED 06:34
DX: R56.9 Unspecified convulsions (principal); I48.91 Unspecified atrial fibrillation; I10 Essential (primary) hypertension; E66.9 Obesity, unspecified; Z79.899 Other long term (current) drug therapy; Z79.01 Long term (current) use of anticoagulants; Z68.41 Body mass index [BMI] 40.0-44.9, adult
CPT/HCPCS: 36415; 71045; 71045-26; 80053; 80307; 82803; 83605; 84145; 85025; 86140; 87040; 93005; 93010; 99284; 99285